=== PATIENT | male | born 2000 | race Caucasian/White ===

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

== ENCOUNTER 2021-02-03 09:59 | Emergency (ER) | payer BC ==
[2021-02-03 10:08] VITALS: BP 133/91
[2021-02-03] MEDS ORDERED: HYDROcod/ACETAM 5/325 MG TABLET PO STA (10:23)
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
--- NOTE | 2021-02-03 11:21 | XRAY Report ---
PROCEDURE: Ribs w/PA Chest RT INDICATIONS: rib pain TECHNIQUE: 3 views of the right ribs were acquired, along with a single view chest. COMPARISON: 12/29/2019 oh FINDINGS: Surgical changes and devices: None. Bones and chest wall: No displaced rib fractures.. No suspicious bony lesions. Overlying soft tissu es appear unremarkable. Lungs and pleura: No pleural effusions or pneumothorax. Lungs appear clear. Mediastinum: Mediastinal contours appear normal. Heart size is normal. IMPRESSION: No displaced rib fractures or other acute abnormality. Reviewed by: Tanner Coughlin DO on 02/03/2021 10:20 AM TASHA Approved by: Tanner Coughlin DO on 02/03/2021 10:20 AM TASHA Station ID: [id number]
== END 2021-02-03 11:41 | disposition home or self-care (01) ==
LOC: ED 09:59
DX: S29.012A Strain of muscle and tendon of back wall of thorax, initial encounter (principal); R07.81 Pleurodynia; X50.0XXA Overexertion from strenuous movement or load, initial encounter; Y93.89 Activity, other specified
CPT/HCPCS: 71101; 99283; 99284; A9270

== ENCOUNTER 2021-03-06 19:26 | Emergency (ER) | payer BC ==
--- NOTE | 2021-03-06 19:41 | ED Physician Documentation ---
PD HPI ABD PAIN - Stated complaint Stated Complaint: MALE - Chief complaint Chief Complaint: Abd Pain - History obtained from History obtained from: Patient, Family - Additional information Additional information: 20-year-old took a second ketamine treatment for anxiety and depression today. Had one last week which went okay but they upped the dose today and subsequently has developed urinary retention and cannot urinate. Review of Systems Constitutional: denies: Fever, Chills Throat: reports: Reviewed and negative Cardiac: reports: Reviewed and negative PD PAST MEDICAL HISTORY - Present Medications Home Medications: Ambulatory Orders Medication Instructions Recorded Confirmed HYDROcod/ACETAM 5/325 [[place] 5/325] 1 - 2 tab PO Q6H PRN #10 tablet 02/03/21 Ibuprofen [Motrin] 800 mg PO Q8H PRN #30 tablet 02/03/21 - Allergies Allergies/Adverse Reactions: Allergies Allergy/AdvReac Type Severity Reaction Status Date / Time No Known Drug Allergies Allergy Verified 03/06/21 19:30 - Social History Does the pt smoke?: No Smoking Status: Never smoker PD ED PE NORMAL - Vitals Vital signs reviewed: Yes - General General: Alert and oriented X 3, Other (He appears uncomfortable and anxious) - Abdomen Abdomen: Soft, Non tender - Neuro Neuro: Alert and oriented X 3, Normal speech - Psych Psych: Normal mood, Normal affect Results - Vitals Vitals: Vital Signs - 24 hr 03/06/21 03/06/21 19:30 21:06 Temperature 37.0 C Heart Rate 105 H 72 Respiratory 18 16 Rate Blood Pressure 153/105 H 134/82 H O2 Saturation 97 96 Oxygen O2 Source Room air PD MEDICAL DECISION MAKING - ED course ED course: 20-year-old with acute urinary retention related to ketamine. Greater than 500 mL in the bladder. Discussed straight cath and voiding trial versus [place] and discharge and he opted for the former. 20-year-old under treatment for anxiety and depression with oral ketamine that he gets online via "[facility]" presents with urinary retention related to same. After straight cathing he was able to urinate on his own. He had about 700 mL out. Departure - Departure Disposition: Home, Self Care Clinical Impression: Acute urinary retention Condition: Good Record reviewed to determine appropriate education?: Yes Instructions: ED Retention Urinary Male Comments: Recommend at least a lower dose of ketamine in the future. Return as needed for new or worsening symptoms.
[2021-03-06 21:07] VITALS: BP 134/82
== END 2021-03-06 21:15 | disposition home or self-care (01) ==
LOC: ED 19:26
DX: R33.0 Drug induced retention of urine (principal); T41.295A Adverse effect of other general anesthetics, initial encounter; F41.9 Anxiety disorder, unspecified; F32.A Depression, unspecified
CPT/HCPCS: 51701; 51798; 99282; 99283